=== PATIENT | male | born 1995 | race Caucasian/White ===

== ENCOUNTER 2020-12-09 18:47 | Emergency (ER) | payer OTHER ==
[~2020-12-09] VITALS: Ht 180.3 cm; Wt 132.4 kg
[~2020-12-09 18:47] MED LIST: NOHOMEMEDICATIONS; TRAMADOL 50 MG50 MG PO
[2020-12-09 19:30] LABS: ABSOLUTE BASOPHILS 0.1 thou/uL (0.0-0.2); ABSOLUTE LYMPHOCYTES 1.6 thou/uL (0.8-5.3); ABSOLUTE MONOCYTES 0.4 thou/uL (0.0-1.2); ABSOLUTE NEUTROPHILS 11.5 thou/uL (1.6-8.1); BASOPHILS 0.4 %; EOSINOPHILS 0.2 %; HEMATOCRIT 47.7 % (42.0-52.0); HEMOGLOBIN 16.3 gm/dL (14.0-18.0); LYMPHOCYTES 11.6 %; MCH 30.8 pg (26.0-34.0); MCHC 34.1 g/dL (28.0-37.0); MCV 90.2 fL (80.0-100.0); MONOCYTES 3.2 %; MPV 7.3 fl. (7.2-11.1); NUCLEATED RBCS 0 /100WBC; PLATELET COUNT* 272 thou/uL (150-400); POLYS 84.6 %; RBC 5.29 mil/uL (4.50-6.00); RDW-CV 13.3 % (10.5-14.5); WBC 13.6 thou/uL (4.0-11.0)
[2020-12-09 19:38] LABS: URINE BLOOD 3+ (Negative); URINE COLOR YELLOW; URINE GLUCOSE-RANDOM NEGATIVE (Negative); URINE KETONES TRACE (Negative); URINE LEUKOCYTES-REFLEX NEGATIVE (Negative); URINE NITRITE-REFLEX NEGATIVE (Negative); URINE PROTEIN 1+ (Negative); URINE SPECIFIC GRAVITY 1.025 (1.005-1.030)
[2020-12-09 19:40] LABS: ICTOTEST (BILI CONFIRMATORY) Negative (Negative); URINE BILIRUBIN 1+ (Negative); URINE CLARITY SL HAZY
[2020-12-09 19:45] LABS: ALBUMIN 4.1 g/dL (3.4-5.0); CALCIUM 8.7 mg/dL (8.5-10.1); CREATININE 1.3 mg/dL (0.6-1.3); POTASSIUM 3.6 mmol/L (3.5-5.1); TOTAL BILIRUBIN 0.8 mg/dL (<0.1-1.0); TOTAL PROTEIN 7.5 g/dL (6.4-8.2)
[2020-12-09 19:47] LABS: CASTS None Seen /LPF (None Seen); CRYSTALS None Seen /LPF (None Seen); MUCUS >6 Heavy strn/LPF (None Seen); SQUAMOUS 0-3 Few /LPF (0-3); URINE RBC >20 Many /HPF (0-2); URINE WBC-REFLEX 0-5 Rare /HPF (0-5)
[2020-12-09] MEDS ORDERED: NAPROSYN500 M1 PO (20:33)
[2020-12-09] MEDS ORDERED: ZOFRAN4 MG PO (20:33)
[2020-12-09] MEDS ORDERED: FLOMAX0.4 MG PO (20:33)
[2020-12-09] MEDS ORDERED: PERCOCET 5-3251 EACH PO (20:33)
[2020-12-09] MEDS ORDERED: PROTONIX40 M2 PO (20:40)
[2020-12-09 20:57] VITALS: BP 126/70
== END 2020-12-09 20:57 | disposition home or self-care (01) ==
LOC: M.ERS 18:47
PROVIDERS: Family Medicine; Nurse Practitioner Family
DX: N20.0 Calculus of kidney (principal); Z88.0 Allergy status to penicillin